=== PATIENT | male | born 1970 | race Caucasian/White ===

== ENCOUNTER 2018-01-15 14:12 | Emergency (ER) | payer OTHER ==
--- NOTE | 2018-01-15 15:34 | EDM.PDOC ---
ED HPI GENERAL MEDICAL PROBLEM - General Chief Complaint: Lower Extremity Injury/Pain Stated Complaint: SWOLLEN LEFT LEG Time Seen by Provider: 01/15/18 15:15 Source of Information: Reports: Patient, Family History Limitations: Reports: No Limitations - History of Present Illness INITIAL COMMENTS - FREE TEXT/NARRATIVE: Eddie presents today for complaints of RLE swelling and pain for 4 days. He reports the swelling and pain was acute onset. He went to [facility], had blood work and x-rays. He was given prednisone to help with his discomfort. He states his swelling and pain have not improved. He denies fever, chills, trauma, injury or insect bite to the leg. 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 Father has a history of CAD, DVT. Right Leg Pain Score (Numeric/FACES): 9 - Related Data Allergies Allergy/AdvReac Type Severity Reaction Status Date / Time No Known Allergies Allergy Verified 01/15/18 15:03 Home Meds: Home Meds Finasteride 5 mg PO DAILY 01/15/18 [History] Lisinopril/Hydrochlorothiazide [Lisinopril-Hctz 20-12.5 mg Tab] 1 cap PO DAILY 01/15/18 [History] Omeprazole 40 mg PO DAILY 01/15/18 [History] Tamsulosin HCl 0.4 mg PO DAILY 01/15/18 [History] amLODIPine Besylate [Amlodipine Besylate] 10 mg PO DAILY 01/15/18 [History] predniSONE 20 mg PO BID 01/15/18 [History] Past Medical History Cardiovascular History: Reports: High Cholesterol, Hypertension Gastrointestinal History: Reports: GERD Genitourinary History: Reports: BPH Social & Family History - Tobacco Use Tobacco Use Comment: current some day smoker - Caffeine Use Caffeine Use: Reports: Coffee - Recreational Drug Use Recreational Drug Use: No Review of Systems - Review of Systems Review Of Systems: See Below Constitutional: Denies: Chills, Diaphoresis, Fever, Weakness Eyes: Reports: No Symptoms Ears: Reports: No Symptoms Nose: Reports: No Symptoms Mouth/Throat: Reports: No Symptoms Respiratory: Denies: Shortness of Breath, Wheezing, Cough, Sputum, Hemoptysis Cardiovascular: Denies: Chest Pain, Lightheadedness, Palpitations, Syncope GI/Abdominal: Reports: No Symptoms Genitourinary: Reports: No Symptoms Musculoskeletal: Reports: Leg Pain, Muscle Pain, Other (Edema to right lower extremity from knee to foot. ) Skin: Denies: Cyanosis, Pallor, Diaphoresis, Dryness, Bruising, Rash, Erythema, Wound, Change in Color, Change in Hair/Nails, Lesions, Urticaria Neurological: Denies: Confusion, Dizziness, Headache, Numbness, Tingling, Difficulty Walking, Weakness, Gait Disturbance Psychiatric: Reports: No Symptoms ED EXAM, GENERAL - Physical Exam Exam: See Below Exam Limited By: No Limitations General Appearance: Alert, WD/WN, No Apparent Distress Eye Exam: Bilateral Eye: EOMI, Normal Fundi, Normal Inspection, PERRL Ears: Normal External Exam, Normal Canal, Hearing Grossly Normal, Normal TMs Ear Exam: Bilateral Ear: Canal Normal, TM normal Nose: Normal Inspection, Normal Mucosa, No Blood Throat/Mouth: Normal Inspection, Normal Lips, Normal Teeth, Normal Oropharynx, Normal Voice, No Airway Compromise Head: Atraumatic, Normocephalic Neck: Normal Inspection, Supple, Non-Tender, Full Range of Motion. No: Lymphadenopathy (R), Lymphadenopathy (L) Respiratory/Chest: No Respiratory Distress, Lungs Clear, Normal Breath Sounds, No Accessory Muscle Use, Chest Non-Tender Cardiovascular: Normal Peripheral Pulses, Regular Rate, Rhythm, No Edema, No Gallop, No Murmur, No Rub Peripheral Pulses: 2+: Radial (L), Radial (R), Femoral (L), Femoral (R), Popliteal (L), Popliteal (R) GI/Abdominal: Normal Bowel Sounds, Soft, Non-Tender, No Organomegaly, No Distention, No Abnormal Bruit, No Mass Back Exam: Normal Inspection, Full Range of Motion. No: CVA Tenderness (R), CVA Tenderness (L) Extremities: Normal Inspection, Normal Range of Motion, Non-Tender, No Pedal Edema, Normal Capillary Refill Neurological: Alert, Oriented, CN II-XII Intact, Normal Cognition, Normal Gait, Normal Reflexes, No Motor/Sensory Deficits Psychiatric: Normal Affect, Normal Mood Skin Exam: Warm, Dry, Intact, Normal Color, No Rash Lymphatic: No Adenopathy Course - Vital Signs Last Recorded V/S: Last Vital Signs Temp 36.0 C 01/15/18 14:54 Pulse 73 01/15/18 14:54 Resp 16 01/15/18 14:54 BP 139/76 01/15/18 14:54 Pulse Ox 97 01/15/18 14:54 - Orders/Labs/Meds Orders: Active Orders 24 hr Category Date Time Status VL Duplex Lwr Ext Veins Ltd Rt [US] Stat Exams 01/15/18 15:31 Taken URIC ACID [CHEM] Stat Lab 01/15/18 15:44 Ordered Labs: Laboratory Tests 01/15/18 01/15/18 01/15/18 Range/Units 15:44 15:44 15:44 WBC 14.1 H (4.5-11.0) K/uL RBC 4.28 L (4.30-5.90) M/uL Hgb 13.8 (12.0-15.0) g/dL Hct 41.8 (40.0-54.0) % MCV 98 (80-98) fL MCH 32 H (27-31) pg MCHC 33 (32-36) % Plt Count 243 (150-400) K/uL Sodium 138 L (140-148) mmol/L Potassium 4.2 (3.6-5.2) mmol/L Chloride 104 (100-108) mmol/L Carbon Dioxide 26 (21-32) mmol/L Anion Gap 12.2 (5.0-14.0) mmol/L BUN 23 H (7-18) mg/dL Creatinine 0.9 (0.8-1.3) mg/dL Est Cr Clr Drug Dosing 116.70 mL/min Estimated GFR (MDRD) > 60 (>60) Glucose 102 (74-106) mg/dL Uric Acid 4.6 (3.5-7.2) mg/dL Calcium 8.9 (8.5-10.1) mg/dL - Radiology Interpretation Free Text/Narrative:: US of RLE negative for DVT Fluid collection over Right patella. Departure - Departure Time of Disposition: 17:21 Disposition: Home, Self-Care 01 Condition: Good Clinical Impression: Edema of right lower extremity, Patellar bursitis of right knee - Discharge Information Instructions: Bursitis, Edema, [id number] Referrals: Sergio Sparks, [employer] [Primary Care Provider] - Forms: ED Department Discharge, ED Return to Work/School Form Additional Instructions: You have been evaluated and treated for right lower leg edema. Fluid collection above right patella (bursitis) most likely from repetitive action. Wear bilateral karsten hose/compression stockings while awake/off at night. May use rodriguez wrap to right knee for comfort. Take acetaminophen/ibuprofen for pain. Follow up with [facility] here in Dr. Vicky Patterson for possible drainage of right knee fluid. Return for worsening issues or concerns. - My Orders Last 24 Hours: My Active Orders 01/15/18 15:31 VL Duplex Lwr Ext Veins Ltd Rt [US] Stat 01/15/18 15:44 URIC ACID [CHEM] Stat - Assessment/Plan Last 24 Hours: My Active Orders 01/15/18 15:31 VL Duplex Lwr Ext Veins Ltd Rt [US] Stat 01/15/18 15:44 URIC ACID [CHEM] Stat Assessment:: Edema of right lower leg Patellar bursitis right knee Plan: Patient evaluated and treated for right lower leg edema. Fluid collection above right patella (bursitis) most likely from repetitive action. Wear bilateral karsten hose/compression stockings while awake/off at night. May use rodriguez wrap to right knee for comfort. Take acetaminophen/ibuprofen for pain. Follow up with [facility] here in Dr. Vicky Patterson for possible drainage of right knee fluid. Return for worsening issues or concerns.
== END 2018-01-15 17:57 | disposition home or self-care (01) ==
LOC: JP.ED 14:12
DX: M70.41 Prepatellar bursitis, right knee (principal); I10 Essential (primary) hypertension; E78.00 Pure hypercholesterolemia, unspecified; K21.9 Gastro-esophageal reflux disease without esophagitis; Z79.899 Other long term (current) drug therapy
CPT/HCPCS: 36415; 80048; 84550; 85027; 93971-RT; 99284-25